=== PATIENT | male | born 1965 | race Caucasian/White ===

== ENCOUNTER → 2018-08-02 | Outpatient (CLI) | payer OTHER, SELFPAY ==
[~2018-08-02] MED LIST: ACTOS 30 MG TAB30 M1 PO; AZOR 10-40 MG1 EACH PO; GLUCOSAMINE &1 EAC1 PO; HYCET 7.5 MG-3473 ML PO; HYDROCHLOROTHIA25 M2 PO; HYDROCODONE-APA1 TA1 PO; LYRICA 50 MG50 MG PO; POTASSIUM GLUCO99 M2 PO; VITAMINC500 PO; XANAX 0.5 MG0.5 MG PO; ZOFRAN ODT4 M1 PO; ZOFRAN ODT4 MG PO
== END ==
LOC: MRI 07:09
DX: S46.812A Strain of other muscles, fascia and tendons at shoulder and upper arm level, left arm, initial encounter (principal); M19.012 Primary osteoarthritis, left shoulder; X58.XXXA Exposure to other specified factors, initial encounter; Y93.89 Activity, other specified; Y92.89 Other specified places as the place of occurrence of the external cause; Y99.8 Other external cause status

== ENCOUNTER 2019-02-27 15:07 | Emergency (ER) | payer OTHER ==
[~2019-02-27] VITALS: Ht 185.4 cm; Wt 127.0 kg
[2019-02-27] MEDS ORDERED: REGLAN 10 MG TA10 MG PO (17:33)
[2019-02-27 17:34] VITALS: BP 139/82
== END 2019-02-27 17:34 | disposition home or self-care (01) ==
LOC: ER 15:07
DX: R06.6 Hiccough (principal); I10 Essential (primary) hypertension; E11.9 Type 2 diabetes mellitus without complications; F41.9 Anxiety disorder, unspecified; G47.30 Sleep apnea, unspecified; Z88.0 Allergy status to penicillin; Z88.1 Allergy status to other antibiotic agents; Z88.6 Allergy status to analgesic agent

== ENCOUNTER → 2020-03-02 | Outpatient (CLI) | payer OTHER ==
[~2020-03-02] MED LIST changes: +CITRACAL + BON1 EACH PO; +HYDROCODON-ACE1 EAC7 PO; +REGLAN 10 MG TA10 MG PO; +UNICOMPLEX M TA1 TA1 PO; +VITAMIN B COMP1 EACH PO; +VITAMIN C1000 MG PO; -VITAMINC500 PO
== END ==
LOC: LAB 08:00
PROVIDERS: ATTEND Student in an Organized Health Care Education/Training Program
DX: Z01.812 Encounter for preprocedural laboratory examination (principal); Z11.59 Encounter for screening for other viral diseases

== ENCOUNTER 2020-03-07 06:06 | Day surgery (SDC) | payer OTHER ==
[~2020-03-07] VITALS: Ht 185.4 cm; Wt 142.9 kg
[2020-03-07 07:00] VITALS: BP 141/72
[2020-03-07 11:33] VITALS: BP 141/72
--- NOTE | 2020-03-07 12:16 | O ---
[address] [address] OPERATIVE REPORT Name: ALISSA ALTMAN Room #: 150-1 [facility]#: [id number] Admission: 03/07/20 Attend Phys: Kenneth Mireles MD Discharge: Date of : 65 Report #: [id number] THIS REPORT FOR: cc: Harish Bah MD,Harish Mireles,Kenneth Harrell MD ~ CC: Harish Mireles DATE OF SERVICE: 03/07/2020 SERVICE: Orthopedics. FACILITY: [facility]. SURGEON: Kenneth Mireles MD ARMORED VEHICLE OFFICER: Rama Caldera NP. INDICATION FOR ARMORED VEHICLE OFFICER: Extremity positioning, arthroscope and suture management, assistance with repair. PREOPERATIVE DIAGNOSES: 1. Right shoulder pain. 2. Right shoulder rotator cuff tear of the supraspinatus. 3. Right shoulder impingement syndrome. POSTOPERATIVE DIAGNOSES: 1. Right shoulder pain. 2. Right shoulder rotator cuff tear of the supraspinatus and subscapularis. 3. Right shoulder impingement syndrome. 4. Right shoulder bursitis and synovitis. 5. Right shoulder superior labrum anterior to posterior tear, degenerative with biceps tendinitis. PROCEDURES: 1. Right shoulder arthroscopic rotator cuff repair. 2. Right shoulder arthroscopic biceps tenodesis. 3. Right shoulder arthroscopic subacromial decompression/acromioplasty. 4. Right shoulder extensive arthroscopic debridement. DRAINS: None. SPECIMENS: None. COMPLICATIONS: None. [address] [address] OPERATIVE REPORT Name: ALISSA ALTMAN Room #: 150-1 [facility]..#: [id number] Admission: 03/07/20 Attend Phys: Kenneth Mireles MD Discharge: Date of : 65 Report #: [id number] FINDINGS: 1. Quinones and Nephjulianna triple loaded Healicoil suture anchor for subscapularis repair incorporating the biceps tenodesis with double loaded Healicoil medial row and Multifix lateral row anchors. 2. 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 3. Postop plan: 6 weeks in sling HISTORY: The patient is a 54-year-old gentleman who has a history of a left shoulder rotator cuff tear that was treated with surgical repair and had good outcome. He was interested in definitive surgical treatment of his symptomatic right shoulder rotator cuff tear that had failed conservative measures as well. He has a history of being morbidly obese with a weight in the 500-pound range and he had successful bariatric surgery and has changed his life and is active and the shoulder was preventing him from maintaining his active lifestyle, and we decided it was most appropriate to move forward with treatment, so that he could maintain a successful weight loss and lifestyle change. Risks, benefits, alternatives and indications of surgery were discussed with him in detail. Risks include but not limited to pain, bleeding, infection, injury to nerves or blood vessels, persistent pain despite surgical intervention, failure of any repairs, progression of preexisting chondral injury, stiffness, need for further surgery as well as complications related to anesthesia up to and including . PROCEDURE IN DETAIL: After right upper extremity was correctly identified in the preoperative holding area as the operative extremity, the patient underwent placement of single shot regional nerve block by anesthesia. He was then taken to the operating room where general anesthesia was induced without complication. He was turned into lateral decubitus position with right side up, left side down, he was padded appropriately. Prophylactic antibiotics were administered at appropriate time. A time-out procedure was performed. Standard posterior viewing portal was established. Diagnostic arthroscopy revealed extensive synovitis throughout the shoulder that was present anteriorly, superiorly and posteriorly. We used the shaver to debride the synovitis anteriorly as well as the labral fraying anterior, superior and posterior and then a chondroplasty of the glenoid and the humeral head. There was a full-thickness rotator cuff tear of the supraspinatus and an upper border subscapularis tear and the biceps was subluxating into this tear of the subscapularis. Therefore, plans were made for repair. A shaver was used to debride the upper border subscapularis insertion on the humerus and then a 5.5 mm Quinones and Nephew triple loaded Healicoil suture anchor was placed and one mattress suture was placed in the upper border subscapularis and then 1 simple stitch of the upper border subscapularis and then one limb through the biceps [address] [address] OPERATIVE REPORT Name: ALISSA ALTMAN Room #: 150-1 [facility] [place]#: [id number] Admission: 03/07/20 Attend Phys: Kenneth Mireles MD Discharge: Date of : 65 Report #: [id number] tendon and around it and then we used the third suture to place a cerclage suture around the biceps distal to the transtendinous stitch. These were then tied sequentially in the standard fashion and then the biceps tendon was cut at its superior labral attachment and then the stump was debrided. The superior labrum was debrided back to a stable perimeter at this point and then the shaver was used to debride the underside of the superior rotator cuff as well as the greater tuberosity and the soft tissue and over the tuberosity. The scope was then placed in subacromial space where a thorough bursectomy was performed. He had a significant amount of thickened proliferative bursitis and this was all resected, allowing visualization of the rotator cuff. The tuberosity had been prepared and then a Quinones and Nephew 5.5 mm PEEK double-loaded anchor with tape was then placed in the footprint and 2 mattress sutures were placed. This provided good compression on the medial side of the rotator cuff and then the lateral row was performed with the 4 SutureTapes with a Multifix suture anchor placed in a typical fashion with good compression of the lateral aspect of the rotator cuff. A bur was then used to perform a subacromial decompression with a posterior cutting block technique in a standard fashion and then the bony debris was lavaged out of the shoulder. Final photographs were taken. Instruments were removed. Portal sites were closed. Sterile dressing was applied. The patient was awakened from anesthesia and taken to recovery room in stable condition. There were no complications and all counts were recorded as complete. POSTOPERATIVE PROTOCOL: Six weeks in the sling due to the two tendon repair and tenodesis. <ELECTRONICALLY SIGNED> By: Kenneth Mireles MD 03/07/20 1216 [id number] Kenneth Mireles MD /nt
--- NOTE | 2020-03-07 13:49 | EKG ---
[facility] [place] [address] ELECTROCARDIOGRAM REPORT Name: ALISSA ALTMAN Room #: 150-[address] [place] [address]..#: [id number] Admission: 03/07/20 Attend Phys: Kenneth Mireles MD Discharge: Date of : 65 Report #: [id number] THIS REPORT FOR: cc: Harish Bah MD, Bradley MD Couchonnal, Luis F. MD ~ THIS REPORT FOR: //name// [facility] Test Date: 2020-03-07 Test Time: 06:44:08 Pat Name: ALISSA ALTMAN Department: Room: [facility] Gender: M [employer] Mechanic: CARSON : 1965 Requested By: Kenneth Mireles Order Number: [id number] MD: Johnny Hill Measurements Intervals [place] Rate: 56 P: 7 OR: 219 QRS: -12 QRSD: 110 T: 3 QT: 420 QTc: 406 Interpretive Statements Sinus rhythm Prolonged OR interval Compared to ECG 01/08/2016 13:22:41 First degree AV block now present T-wave abnormality no longer present Electronically Signed On 03-07-2020 13:49:37 CDT by Johnny Hill [email or web address] <ELECTRONICALLY SIGNED> By: Johnny Hill MD 03/07/20 1349 [id number] Johnny Hill MD /EPI
== END 2020-03-07 12:15 | disposition home or self-care (01) ==
LOC: OR 06:06 → TBA 06:07 → OR 12:15
PROVIDERS: ATTEND Orthopaedic Surgery Sports Medicine
DX: M25.511 Pain in right shoulder (principal); M75.101 Unspecified rotator cuff tear or rupture of right shoulder, not specified as traumatic; S43.431A Superior glenoid labrum lesion of right shoulder, initial encounter; M75.41 Impingement syndrome of right shoulder; M75.51 Bursitis of right shoulder; M65.811 Other synovitis and tenosynovitis, right shoulder; M75.21 Bicipital tendinitis, right shoulder; F41.9 Anxiety disorder, unspecified; G47.30 Sleep apnea, unspecified; K21.9 Gastro-esophageal reflux disease without esophagitis; Z98.890 Other specified postprocedural states; Z98.84 Bariatric surgery status; Z79.899 Other long term (current) drug therapy; Z88.0 Allergy status to penicillin; Z88.8 Allergy status to other drugs, medicaments and biological substances; X58.XXXA Exposure to other specified factors, initial encounter; Y93.89 Activity, other specified; Y92.89 Other specified places as the place of occurrence of the external cause; Y99.8 Other external cause status
CPT/HCPCS: 50010; 50101; 50172; 50386; 50417; 50935; 51320; 52313; 53610; 56527; 57103; 57128; 58194; 58195; 58196; 62110; 62900; 64039; 70005